=== PATIENT | male | born 1965 | race Two or more races ===

== ENCOUNTER 2016-11-14 11:04 | Emergency (ER) | payer BC, MEDICAID, OTHER ==
[~2016-11-14] VITALS: Ht 167.6 cm; Wt 58.1 kg
[2016-11-14 11:08] VITALS: BP 109/69
[2016-11-14] MEDS ORDERED: KETOROLAC 30 MG/1 ML ONE (11:58)
[2016-11-14] MEDS ORDERED: DIAZEPAM 5 MG TABLET ONE (11:58)
[2016-11-14] MEDS ORDERED: HYDROcodone/APAP 5/325 TABLET ONE (11:58)
[2016-11-14] MEDS ORDERED: KETOROLAC 30 MG/1 ML IM ONE (12:00)
[2016-11-14] MEDS ORDERED: DIAZEPAM 5 MG TABLET PO ONE (12:00)
[2016-11-14] MEDS ORDERED: HYDROcodone/APAP 5/325 TABLET PO ONE (12:00)
== END 2016-11-14 12:35 | disposition home or self-care (01) ==
LOC: ED 12:27
DX: S39.012A Strain of muscle, fascia and tendon of lower back, initial encounter (principal); X58.XXXA Exposure to other specified factors, initial encounter; Y93.89 Activity, other specified; Y92.89 Other specified places as the place of occurrence of the external cause; Y99.8 Other external cause status
CPT/HCPCS: 96372; 99283; J1885

== ENCOUNTER 2017-01-27 20:41 | Emergency (ER) | payer OTHER ==
[~2017-01-27] VITALS: Ht 162.6 cm; Wt 58.2 kg
[2017-01-27 20:43] VITALS: BP 122/77
== END 2017-01-27 22:10 | disposition home or self-care (01) ==
LOC: ED 21:37
DX: S02.32XA Fracture of orbital floor, left side, initial encounter for closed fracture (principal); S02.40DA Maxillary fracture, left side, initial encounter for closed fracture; X58.XXXA Exposure to other specified factors, initial encounter; Y93.89 Activity, other specified; Y92.89 Other specified places as the place of occurrence of the external cause; Y99.8 Other external cause status
CPT/HCPCS: 70486; 99284

== ENCOUNTER 2017-03-24 10:51 | Emergency (ER) | payer OTHER ==
[~2017-03-24] VITALS: Ht 162.6 cm; Wt 56.9 kg
[2017-03-24 12:51] VITALS: BP 105/69
== END 2017-03-24 12:53 | disposition home or self-care (01) ==
LOC: ED 11:47
DX: F41.1 Generalized anxiety disorder (principal); R42 Dizziness and giddiness
CPT/HCPCS: 70486; 93005; 99284

== ENCOUNTER → 2020-10-23 | Outpatient (CLI) | payer MEDICAID ==
[~2020-10-23] MED LIST: ALPR1TAB PO; GADOTERATE 10 MMOL/20ML SYR ONE
== END | disposition home or self-care (01) ==
LOC: CFH 12:58
PROVIDERS: ATTEND Nurse Practitioner Gerontology
DX: D32.0 Benign neoplasm of cerebral meninges (principal)
CPT/HCPCS: 70553; A9575

== ENCOUNTER 2021-01-02 17:46 | Emergency (ER) | payer MEDICAID ==
[~2021-01-02] VITALS: Ht 162.6 cm; Wt 60.5 kg
[~2021-01-02 17:46] MED LIST changes: -GADOTERATE 10 MMOL/20ML SYR ONE
[2021-01-02 18:16] VITALS: BP 110/64
[2021-01-02 18:48] LABS: BASOPHILS % (AUTO) 1 % (0-1); EOSINOPHILS % (AUTO) 4 % (1-7); LYMPHOCYTES % (AUTO) 26 % (22-44); MEAN CORPUSCULAR HEMOGLOBIN 29.7 pg (27.5-34.5); MEAN CORPUSCULAR HGB CONC 34.5 g/dL (33.2-36.2); MEAN PLATELET VOLUME 7.9 fL (7.4-10.4); MONOCYTES % (AUTO) 9 % (2-9); NEUTROPHILS % (AUTO) 60 % (42-75); PLATELET COUNT 255 x10^3/uL (130-400); RED BLOOD COUNT 4.83 x10^6/uL (4.38-5.82); RED CELL DISTRIBUTION WIDTH 14.1 % (9.4-14.8)
[2021-01-02 18:56] LABS: ANION GAP 7 mmol/L (5-15); CALCIUM 8.7 mg/dL (8.5-10.1); CHLORIDE 105 mmol/L (98-107)
[2021-01-02 18:57] LABS: CREATININE 0.56 mg/dL (0.7-1.3)
[2021-01-02 21:24] LABS: MICROSCOPIC AUTO
== END 2021-01-02 21:40 | disposition home or self-care (01) ==
LOC: ED 21:33
DX: S29.012A Strain of muscle and tendon of back wall of thorax, initial encounter (principal); M62.830 Muscle spasm of back; M54.5 Low back pain; M79.601 Pain in right arm; X58.XXXA Exposure to other specified factors, initial encounter; Y93.89 Activity, other specified; Y92.89 Other specified places as the place of occurrence of the external cause; Y99.8 Other external cause status
CPT/HCPCS: 36415; 72072; 72110; 80048; 81001; 82040; 85025; 99284